=== PATIENT | female | born 1965 | race Caucasian/White ===

== ENCOUNTER 2020-11-18 16:47 | Observation (INO) ==
[2020-11-19] MEDS ORDERED: Magnesium Hydroxide LIQ 30 ML UDC PO PRN (00:28)
[2020-11-19 15:47] VITALS: BP 108/71
[2020-11-19] MEDS ORDERED: Lidocaine PATCH 5% PATCH TRANSDERM SCH (17:00)
[2020-11-19] MEDS ORDERED: Lidocaine Patch REMOVE PATCH PATCH OFF SCH (21:00)
== END 2020-11-19 16:45 | disposition home or self-care (01) ==
LOC: ED 16:47 → OBSVTOIN 11-19 00:24 → SSU 11-19 00:24 → INTOOBSV 11-19 00:24 → SSU 11-19 02:52
PROVIDERS: ADMIT Student in an Organized Health Care Education/Training Program; ATTEND Pediatrics